=== PATIENT | female | born 1965 | race African-American/Black ===

== ENCOUNTER 2016-07-02 23:45 | Emergency (ER) | payer SELFPAY ==
[~2016-07-02] VITALS: Ht 180.3 cm; Wt 114.0 kg
[2016-07-03] MEDS ORDERED: CYCLOBENZAPRINE 10MG TABLET PO ONE (01:15)
[2016-07-03] MEDS ORDERED: KETOROLAC 30MG/ML VIAL IM ONE (01:15)
[2016-07-03 01:50] VITALS: BP 123/68
== END 2016-07-03 02:42 | disposition home or self-care (01) ==
LOC: ER 23:45
DX: S50.02XA Contusion of left elbow, initial encounter (principal); X58.XXXA Exposure to other specified factors, initial encounter; Y93.89 Activity, other specified; Y99.8 Other external cause status; Y92.89 Other specified places as the place of occurrence of the external cause
CPT/HCPCS: 73070; 96372; 99284; J1885

== ENCOUNTER 2019-10-21 20:44 | Emergency (ER) | payer MEDICAID, OTHER ==
[~2019-10-21] VITALS: Ht 180.3 cm; Wt 130.0 kg
[2019-10-21] MEDS ORDERED: TETANUS, DIPHTHERIA, PERTUSSIS VAC/PF 0.5ML (>7YR OLD) IM ONE (23:45)
[2019-10-21] MEDS ORDERED: IBUPROFEN 600MG TABLET PO ONE (23:45)
[2019-10-21 23:53] VITALS: BP 162/81
[2019-10-22] MEDS ORDERED: BACITRACIN ZINC OINT UDPKT TOP ONE (01:00)
== END 2019-10-22 00:59 | disposition home or self-care (01) ==
LOC: ER 20:51
DX: H60.02 Abscess of left external ear (principal); Z98.890 Other specified postprocedural states
CPT/HCPCS: 90471; 90715; 99283

== ENCOUNTER 2020-05-22 12:34 | Emergency (ER) | payer MEDICAID, OTHER ==
[~2020-05-22] VITALS: Ht 180.3 cm; Wt 148.0 kg
[2020-05-22 13:52] LABS: BG BASE EXCESS 0.8 mmol/L (-2.0-2.0); BG CARBOXYHEMOGLOBIN 0.1 % (0.5-1.5); BG DEOXYHEMOGLOBIN 3.4 % (0.0-5.0); BG FRACTION INSPIRED OXYGEN 21; BG HCO3 ACT 25.8 mmol/L (22.0-26.0); BG METHEMOGLOBIN 0.2 % (0.0-1.5); BG OXYGEN SATURATION 96.6 % (92.0-98.5); BG OXYHEMOGLOBIN 96.3 % (94.0-97.0); BG PCO2 42.6 mmHg (35.0-45.0); BG PO2 88.8 mmHg (75.0-100.0); BG SAMPLE SITE RIGHT BRACHIAL; BG TOTAL HEMOGLOBIN 12.2 g/dL (12.0-18.0); BG VENT MODE ROOM AIR
[2020-05-22 14:03] LABS: BASOPHILS % 0.5 % (0.0-2.0); EOSINOPHILS % 0.7 % (0.0-5.0); HEMATOCRIT. 35.1 % (36.0-48.0); HEMOGLOBIN. 11.2 g/dL (12.0-16.0); MEAN CORPUSCULAR HEMOGLOBIN 26.2 pg (28.0-32.0); MEAN CORPUSCULAR VOLUME 81.8 fL (81.0-99.0); MEAN PLATELET VOLUME 8.4 fl (7.4-10.4); MONOCYTES % 8.1 % (2.0-8.0); NEUTROPHILS % 54.7 % (40.0-76.0); PLATELET 198 x1000/uL (130-400); RED BLOOD CELL COUNT 4.29 mill/uL (4.2-5.4); RED CELL DISTRIBUTION WIDTH 16.5 % (11.6-14.6)
[2020-05-22 14:08] LABS: CHLORIDE 109 mEq/L (98-107)
[2020-05-22 14:13] LABS: PROTHROMBIN TIME 10.7 sec (9.6-11.0)
[2020-05-22 16:23] VITALS: BP 144/80
== END 2020-05-22 16:28 | disposition home or self-care (01) ==
LOC: ER 12:34
DX: R55 Syncope and collapse (principal); R51.9 Headache, unspecified
CPT/HCPCS: 36415; 36600; 71045; 80053; 82375; 82805; 85025; 93005; 99285

== ENCOUNTER 2021-02-07 20:29 | Emergency (ER) | payer OTHER ==
[~2021-02-07] VITALS: Ht 180.3 cm; Wt 150.0 kg
[2021-02-08] MEDS ORDERED: IBUPROFEN 600MG TABLET PO ONE
[2021-02-08] MEDS ORDERED: IBUP-2028 MT (01:26)
[2021-02-08 02:09] VITALS: BP 142/89
== END 2021-02-08 02:10 | disposition home or self-care (01) ==
LOC: ER 20:29
DX: R51.9 Headache, unspecified (principal); M54.9 Dorsalgia, unspecified; M25.561 Pain in right knee; M25.562 Pain in left knee; V49.49XA Driver injured in collision with other motor vehicles in traffic accident, initial encounter; Y93.89 Activity, other specified; Y92.89 Other specified places as the place of occurrence of the external cause; Y99.8 Other external cause status
CPT/HCPCS: 72070; 72100; 73560; 93005; 99285